=== PATIENT | male | born 1950 | race Caucasian/White ===

== ENCOUNTER 2023-06-05 10:40 | Outpatient (RCR) | payer MEDICARE, MEDICAID, SELFPAY | END 2023-07-11 17:05 | disposition home or self-care (01) | LOC: PT 10:40 | DX: M25.552 Pain in left hip (principal); M54.16 Radiculopathy, lumbar region; M76.02 Gluteal tendinitis, left hip | CPT/HCPCS: 97110; 97112; 97140; 97162 ==

== ENCOUNTER 2023-06-06 13:19 | Outpatient (REF) | payer MEDICARE, MEDICAID, SELFPAY ==
[2023-06-06 13:45] LABS: Potassium 5.2 mmol/L (3.5-5.1)
== END 2023-06-06 13:20 | disposition home or self-care (01) ==
LOC: LAB 13:19
PROVIDERS: Visit Provider Internal Medicine
DX: E87.5 Hyperkalemia (principal)
CPT/HCPCS: 36415; 84132

== ENCOUNTER 2023-07-11 12:52 | Outpatient (REF) | payer MEDICARE, MEDICAID, SELFPAY ==
[2023-07-11 13:20] LABS: Potassium 5.1 mmol/L (3.5-5.1)
== END 2023-07-11 12:53 | disposition home or self-care (01) ==
LOC: LAB 12:52
PROVIDERS: Visit Provider Internal Medicine Nephrology
DX: E87.5 Hyperkalemia (principal)
CPT/HCPCS: 36415; 84132

== ENCOUNTER 2023-09-04 09:40 | Outpatient (RCR) | payer MEDICARE, MEDICAID, SELFPAY | END 2023-09-24 16:06 | disposition home or self-care (01) | LOC: PT 09:40 | PROVIDERS: Visit Provider Student in an Organized Health Care Education/Training Program | DX: M54.59 Other low back pain (principal); M54.6 Pain in thoracic spine | CPT/HCPCS: 97110; 97162 ==

== ENCOUNTER 2024-03-09 19:46 | Outpatient (OUT) | payer MEDICARE, MEDICAID, SELFPAY | END 2024-03-09 19:47 | disposition home or self-care (01) | LOC: SLEEP 19:46 | DX: G47.33 Obstructive sleep apnea (adult) (pediatric) (principal) | CPT/HCPCS: 95811 ==